=== PATIENT | female | born 1995 | race Caucasian/White ===

== ENCOUNTER 2018-01-17 19:23 | Emergency (ER) | payer MEDICAID, OTHER ==
[~2018-01-17] VITALS: Ht 157.5 cm; Wt 67.0 kg
[2018-01-17] MEDS ORDERED: SODIUM CHLORIDE 0.9% 1,000ML IVBOLUS ONE (19:30)
[2018-01-17] MEDS ORDERED: MORPHINE SULFATE 4 MG/ML, 1ML IVPush PRN (19:30)
[2018-01-17] MEDS ORDERED: SODIUM CHLORIDE FLUSH 10ML SYR IVF ONE (19:30)
[2018-01-17] MEDS ORDERED: ONDANSETRON ODT 4 MG PO ONE (19:30)
[2018-01-17] MEDS ORDERED: ONDANSETRON ODT 4 MG ONE (19:40)
[2018-01-17] MEDS ORDERED: MORPHINE SULFATE 4 MG/ML, 1ML ONE (19:40)
[2018-01-17 19:51] LABS: BASOPHILS # (AUTO) 0.01 x10^3/uL (0-0.1); BASOPHILS % (AUTO) 0 % (0-1); EOSINOPHILS # (AUTO) 0.09 x10^3/uL (0-0.4); EOSINOPHILS % (AUTO) 1 % (1-7); LYMPHOCYTES # (AUTO) 2.85 x10^3/uL (1-3.4); LYMPHOCYTES % (AUTO) 38 % (22-44); MD NO; MEAN CORPUSCULAR HEMOGLOBIN 29.4 pg (27.0-34.8); MEAN CORPUSCULAR HGB CONC 33.7 g/dL (32.4-35.8); MEAN CORPUSCULAR VOLUME 87.3 fL (80-100); MEAN PLATELET VOLUME 8.2 fL (7.4-10.4); MONOCYTES # (AUTO) 0.52 x10^3/uL (0.2-0.8); MONOCYTES % (AUTO) 7 % (2-9); NEUTROPHILS # (AUTO) 4.12 x10^3/uL (1.8-6.8); NEUTROPHILS % (AUTO) 54 % (42-75); PLATELET COUNT 281 x10^3/uL (130-400); RED BLOOD COUNT 4.91 x10^6/uL (3.82-5.3); RED CELL DISTRIBUTION WIDTH 13.2 % (9.6-15.2)
[2018-01-17] MEDS ORDERED: OMNIPAQUE 350 MG/ML, 100ML BOTTLE ONE (20:00)
[2018-01-17] MEDS ORDERED: PROCHLORPERAZINE 5 MG/ML, 2ML IV ONE (20:00)
[2018-01-17 20:03] LABS: ANION GAP 8 mmol/L (5-15); CALCIUM 8.8 mg/dL (8.5-10.1); CHLORIDE 109 mmol/L (98-107); CREATININE 0.82 mg/dL (0.55-1.02)
[2018-01-17 20:04] LABS: ALANINE AMINOTRANSFERASE 36 U/L (12-78); ALBUMIN 3.7 g/dL (3.4-5.0)
[2018-01-17] MEDS ORDERED: PROCHLORPERAZINE 5 MG/ML, 2ML ONE (20:05)
[2018-01-17 20:08] LABS: ALKALINE PHOSPHATASE 94 U/L (45-117); BILIRUBIN,TOTAL 0.2 mg/dL (0.2-1.0); TOTAL PROTEIN 8.6 g/dL (6.4-8.2)
[2018-01-17 20:12] LABS: MICROSCOPIC AUTO
[2018-01-17 20:15] LABS: CULTURE INDICATED? YES
[2018-01-17 21:42] VITALS: BP 109/63
== END 2018-01-17 21:44 | disposition home or self-care (01) ==
LOC: ED 21:38
DX: N30.00 Acute cystitis without hematuria (principal)
CPT/HCPCS: 36415; 74177; 80053; 81001; 84703; 85025; 87086; 96374; 96375; 99285; J0780; Q9967

== ENCOUNTER 2019-10-11 13:54 | Emergency (ER) | payer MEDICAID ==
[~2019-10-11] VITALS: Ht 152.4 cm; Wt 72.1 kg
[2019-10-11 13:56] VITALS: BP 123/71
--- NOTE | 2019-10-11 15:05 | NUR ---
Pt to 36 from [facility]
--- NOTE | 2019-10-11 15:14 | NUR ---
PT A&OX3, RESP EVEN & UNLABORED, SPEECH CLEAR, SKIN WNL. PT REPORTS SHE STARTED LIGHT BLEEDING YESTERDAY, HEAVIER TODAY - SHORTS WERE COMPLETELY RED. DENIES PAIN. LMP: 08/31/19. AB0.
[2019-10-11] MEDS ORDERED: PRENATAL VITAMIN (15:19)
--- NOTE | 2019-10-11 15:22 | NUR ---
LABS DRAWN. PT NOTIFIED OF NEED FOR URINE SPECIMEN; SUPPLIES PROVIDED.
[2019-10-11 15:29] LABS: BASOPHILS # (AUTO) 0.03 x10^3/uL (0-0.1); BASOPHILS % (AUTO) 0 % (0-1); EOSINOPHILS # (AUTO) 0.03 x10^3/uL (0-0.4); EOSINOPHILS % (AUTO) 0 % (1-7); LYMPHOCYTES % (AUTO) 23 % (22-44); MD NO; MEAN CORPUSCULAR HEMOGLOBIN 29.8 pg (27.0-34.8); MEAN CORPUSCULAR HGB CONC 33.9 g/dL (32.4-35.8); MEAN CORPUSCULAR VOLUME 87.8 fL (80-100); MEAN PLATELET VOLUME 8.2 fL (7.4-10.4); MONOCYTES # (AUTO) 0.56 x10^3/uL (0.2-0.8); MONOCYTES % (AUTO) 7 % (2-9); NEUTROPHILS # (AUTO) 6.12 x10^3/uL (1.8-6.8); NEUTROPHILS % (AUTO) 70 % (42-75); PLATELET COUNT 274 x10^3/uL (130-400); RED BLOOD COUNT 4.81 x10^6/uL (3.82-5.3); RED CELL DISTRIBUTION WIDTH 13.9 % (9.6-15.2)
--- NOTE | 2019-10-11 15:40 | NUR ---
VOIDED SPECIMEN PROVIDED; WILL BE WALKED TO LAB
[2019-10-11 16:12] LABS: CULTURE INDICATED? YES; MICROSCOPIC INDICATED
== END 2019-10-11 17:05 | disposition home or self-care (01) ==
LOC: ED 15:15
DX: O20.0 Threatened abortion (principal); O23.41 Unspecified infection of urinary tract in pregnancy, first trimester; Z3A.01 Less than 8 weeks gestation of pregnancy
CPT/HCPCS: 36415; 76801; 81001; 84702; 85025; 86901; 87086; 99284